=== PATIENT | female | born 1955 | race Caucasian/White ===

== ENCOUNTER → 2017-01-23 | Outpatient (CLI) | payer BC ==
[~2017-01-23] MED LIST: ASPIRIN EC325 MG PO; ATORVASTATIN CA20 MG PO; CENTRUM COMPLE1 EACH PO; CHANTIX0.5 MG PO; Habitrol,Nicoderm CQ TD; LORAZEPAM1 MG PO; Levaquin PO; MAG-AL PLUS SUS30 ML PO; MELOXICAM15 MG PO; MUCINEX600 MG PO; NITROSTAT0.4 MG SL; PANTOPRAZOLE SO40 MG PO; RANITIDINE HCL150 MG PO; VENTOLIN HFA18 GM IH; ZOLPIDEM TARTRAT5 MG PO
== END | disposition home or self-care (01) ==
LOC: OPR 08:39 → EDSTATUS 09:00
DX: C34.10 Malignant neoplasm of upper lobe, unspecified bronchus or lung (principal); Z87.891 Personal history of nicotine dependence; J44.9 Chronic obstructive pulmonary disease, unspecified; K21.9 Gastro-esophageal reflux disease without esophagitis
CPT/HCPCS: 71010; 77012; 85027; 85610; 85730; 88305; 88341 TC; 88342 TC; J2250; J2310; J3010

== ENCOUNTER → 2017-03-01 | Outpatient (CLI) | payer BC ==
[2017-03-01 13:47] LABS: BASE EXCESS 2.6 mEq/L (-3 to +3); BICARBONATE 27.2 mEq/L (22-26); CARBOXY HGB 1.2 % (0-5); COMMENTS - BLOOD GASES A+C+; METHEMOGLOBIN 0.5 % (0-1.5); PCO2 41 mm Hg (35-45); PO2 81 mm Hg (80-100); SITE RR; pH 7.43 (7.35-7.45)
[2017-03-01 13:48] LABS: DEVICE RA
== END | disposition home or self-care (01) ==
LOC: RES 13:33
PROVIDERS: Thoracic Surgery (Cardiothoracic Vascular Surgery)
DX: C34.90 Malignant neoplasm of unspecified part of unspecified bronchus or lung (principal)
CPT/HCPCS: 36600; 82803

== ENCOUNTER → 2017-03-01 | Outpatient (CLI) | payer BC | END | disposition home or self-care (01) | LOC: CDC 12:36 | DX: Z01.810 Encounter for preprocedural cardiovascular examination (principal); C34.90 Malignant neoplasm of unspecified part of unspecified bronchus or lung; R94.31 Abnormal electrocardiogram [ECG] [EKG] | CPT/HCPCS: 93000 ==

== ENCOUNTER 2017-03-15 10:53 | Day surgery (SDC) | payer BC ==
[~2017-03-15] VITALS: Ht 167.6 cm; Wt 72.6 kg
[~2017-03-15 10:53] MED LIST changes: +ALKA-SELTZER PL25 MG PO; +FLONASE16 G1 BOTH NARES; +MUCINEX FAST-M1 EAC2 PO
[2017-03-15 11:25] VITALS: BP 132/79
[2017-03-15] MEDS ORDERED: HYDROCODON-ACE1 EAC7 PO (18:07)
[2017-03-15] MEDS ORDERED: COLACE100 MG PO (18:07)
[2017-03-15 19:36] VITALS: BP 136/63
[2017-03-15 20:30] VITALS: BP 117/56
== END 2017-03-15 20:52 | disposition home or self-care (01) ==
LOC: SDC 10:53
PROC: 07B74ZX Excision of Thorax Lymphatic, Percutaneous Endoscopic Approach, Diagnostic (ICD-10-PCS; principal; 2017-03-15)
DX: C34.11 Malignant neoplasm of upper lobe, right bronchus or lung (principal); K21.9 Gastro-esophageal reflux disease without esophagitis; J44.9 Chronic obstructive pulmonary disease, unspecified; Z88.0 Allergy status to penicillin; Z87.891 Personal history of nicotine dependence
CPT/HCPCS: 86850; 86900; 86901; 88305; J0690; J1100; J1170; J1885; J2250; J2405; J2710; J2765; J3010

== ENCOUNTER 2017-03-28 22:26 | Inpatient (IN) | payer BC ==
[~2017-03-28] VITALS: Ht 167.6 cm; Wt 97.1 kg
[~2017-03-28 22:26] MED LIST changes: +ALKA-SELTZER P1 EAC8 PO; +COLACE100 MG PO; +HYDROCODON-ACE1 EAC7 PO
[2017-03-29] VITALS (10 sets, daily range): BP systolic 107–125; BP diastolic 41–66
[2017-03-30] VITALS (23 sets, daily range): BP systolic 101–150; BP diastolic 42–98
[2017-03-30 05:20] LABS: HEMATOCRIT 27.3 % (36.0-46.0); MCH 29.8 PG (29.0-34.0); MCV 90.4 FL (83-99); PLATELET COUNT 275 K/uL (156-360); RBC DIS.WIDTH-CV 13.8 % (11.8-14.6); RBC DIS.WIDTH-SD 45.4 % (39-53); WHITE BLOOD COUNT 12.5 K/uL (4.1-10.2)
[2017-03-30 05:34] LABS: CHLORIDE 106 MEQ/L (99-109); POTASSIUM 4.5 MEQ/L (3.7-5.4); SODIUM 137 MEQ/L (136-147)
[2017-03-30 05:40] LABS: CREATININE 0.7 MG/DL (0.6-1.3); GFR ESTIMATE (CALCULATED) > 59 mL/min/; GLUCOSE 104 mg/dL (70-99); UREA NITROGEN (BUN) 13 mg/dL (9-23)
[2017-03-30 05:44] LABS: RED BLOOD COUNT 3.02 M/uL (3.80-5.20)
[2017-03-31] VITALS (19 sets, daily range): BP systolic 111–131; BP diastolic 52–76
[2017-03-31 05:59] LABS: HEMATOCRIT 27.7 % (36.0-46.0); HEMOGLOBIN 8.9 G/DL (11.9-15.5); MCH 29.6 PG (29.0-34.0); MCHC 32.1 G/DL (30.0-36.0); PLATELET COUNT 254 K/uL (156-360); RBC DIS.WIDTH-SD 47.4 % (39-53); RED BLOOD COUNT 3.01 M/uL (3.80-5.20); WHITE BLOOD COUNT 8.9 K/uL (4.1-10.2)
[2017-03-31 06:25] LABS: CHLORIDE 106 MEQ/L (99-109); CREATININE 0.7 MG/DL (0.6-1.3); GFR ESTIMATE (CALCULATED) > 59 mL/min/; GLUCOSE 102 mg/dL (70-99); POTASSIUM 4.1 MEQ/L (3.7-5.4); SODIUM 141 MEQ/L (136-147); UREA NITROGEN (BUN) 13 mg/dL (9-23)
[2017-04-01] VITALS (12 sets, daily range): BP systolic 97–148; BP diastolic 52–86
[2017-04-01 05:44] LABS: HEMOGLOBIN 9.3 G/DL (11.9-15.5); MCH 29.6 PG (29.0-34.0); MCHC 32.1 G/DL (30.0-36.0); MCV 92.4 FL (83-99); PLATELET COUNT 306 K/uL (156-360); RBC DIS.WIDTH-SD 47.1 % (39-53); RED BLOOD COUNT 3.14 M/uL (3.80-5.20); WHITE BLOOD COUNT 9.1 K/uL (4.1-10.2)
[2017-04-01 06:07] LABS: CHLORIDE 106 MEQ/L (99-109); CREATININE 0.6 MG/DL (0.6-1.3); GFR ESTIMATE (CALCULATED) > 59 mL/min/; GLUCOSE 110 mg/dL (70-99); POTASSIUM 4.1 MEQ/L (3.7-5.4); SODIUM 141 MEQ/L (136-147); UREA NITROGEN (BUN) 13 mg/dL (9-23)
[2017-04-02] VITALS (8 sets, daily range): BP systolic 102–138; BP diastolic 53–96
[2017-04-03 03:41] VITALS: BP 138/70
[2017-04-03 05:23] LABS: HEMATOCRIT 27.7 % (36.0-46.0); MCH 29.6 PG (29.0-34.0); MCHC 32.5 G/DL (30.0-36.0); MCV 91.1 FL (83-99); PLATELET COUNT 343 K/uL (156-360); RBC DIS.WIDTH-CV 13.8 % (11.8-14.6); RBC DIS.WIDTH-SD 44.9 % (39-53); RED BLOOD COUNT 3.04 M/uL (3.80-5.20)
[2017-04-03 05:30] LABS: CHLORIDE 105 MEQ/L (99-109); CREATININE 0.7 MG/DL (0.6-1.3); GFR ESTIMATE (CALCULATED) > 59 mL/min/; GLUCOSE 111 mg/dL (70-99); POTASSIUM 3.8 MEQ/L (3.7-5.4); SODIUM 140 MEQ/L (136-147); UREA NITROGEN (BUN) 15 mg/dL (9-23)
[2017-04-03 08:06] VITALS: BP 144/74
[2017-04-03 11:42] VITALS: BP 113/59
[2017-04-03 15:33] VITALS: BP 119/55
[2017-04-03 20:00] VITALS: BP 112/69
[2017-04-03] MEDS ORDERED: COLACE100 MG PO (22:05)
[2017-04-03] MEDS ORDERED: NORCO 5/3251 TABLET PO (22:05)
[2017-04-03] MEDS ORDERED: MUCINEX600 MG PO (22:05)
== END 2017-04-03 23:30 | disposition home or self-care (01) | DRG 165 ==
LOC: ENRESERV 22:26 → 2SOUTH 03-29 06:32 → ENRESERV 03-29 09:23 → SDC 03-29 12:53 → 4WEST 03-29 14:08 → EDSTATUS 03-29 15:07 → 2SOUTH 03-29 15:08 → 4WEST 03-29 17:30 → ENRESERV 04-02 08:30 → 3EAST 04-02 14:40
PROVIDERS: Thoracic Surgery (Cardiothoracic Vascular Surgery)
DX: C34.11 Malignant neoplasm of upper lobe, right bronchus or lung (principal); J44.9 Chronic obstructive pulmonary disease, unspecified; K21.9 Gastro-esophageal reflux disease without esophagitis; M19.90 Unspecified osteoarthritis, unspecified site; Z87.891 Personal history of nicotine dependence; Z80.0 Family history of malignant neoplasm of digestive organs; Z83.3 Family history of diabetes mellitus
CPT/HCPCS: 71045; 71046; 80048; 85027; 85610; 86850; 86900; 86901; 86920; 87641; 88300; 88305; 88309; 94010; 94640; 94640 76; 94799; 97530 GO; 97530 GP; 99202; J0131; J0690; J1100; J1160; J1170; J1644; J1885; J2250; J2405; J2710; J3010; J7040; J7050; J7120; S0020

== ENCOUNTER 2017-07-09 23:24 | Emergency (ER) | payer OTHER, BC ==
[~2017-07-09] VITALS: Ht 162.6 cm; Wt 72.3 kg
[~2017-07-09 23:24] MED LIST changes: +NORCO 5/3251 TABLET PO
[2017-07-10] MEDS ORDERED: KEFLEX500 MG PO (00:48)
[2017-07-10] MEDS ORDERED: NORCO 5/3251 TABLET PO (00:48)
[2017-07-10 01:11] VITALS: BP 135/82
== END 2017-07-10 01:12 | disposition home or self-care (01) ==
LOC: EME 23:24
DX: S62.627A Displaced fracture of middle phalanx of left little finger, initial encounter for closed fracture (principal); W23.0XXA Caught, crushed, jammed, or pinched between moving objects, initial encounter; W24.0XXA Contact with lifting devices, not elsewhere classified, initial encounter; Z85.118 Personal history of other malignant neoplasm of bronchus and lung; Z98.890 Other specified postprocedural states; Z88.0 Allergy status to penicillin
CPT/HCPCS: 73140; 99281; 99284

== ENCOUNTER 2017-07-30 16:30 | Inpatient (IN) | payer OTHER, BC ==
[~2017-07-30] VITALS: Ht 152.4 cm; Wt 68.2 kg
[~2017-07-30 16:30] MED LIST changes: +KEFLEX500 MG PO
[2017-07-30] MEDS ORDERED: ANORO ELLIPTA1 EACH IH (17:38)
[2017-07-30] MEDS ORDERED: ZYRTEC10 M3 PO (17:38)
[2017-07-30] MEDS ORDERED: ALEVE220 MG PO (17:39)
[2017-07-30 18:17] VITALS: BP 131/86
[2017-07-30 19:04] LABS: HEMATOCRIT 39.7 % (36.0-46.0); HEMOGLOBIN 13.2 G/DL (11.9-15.5); MCH 27.8 PG (29.0-34.0); MCHC 33.2 G/DL (30.0-36.0); MCV 83.6 FL (83-99); PLATELET COUNT 346 K/uL (156-360); RBC DIS.WIDTH-CV 14.5 % (11.8-14.6); RBC DIS.WIDTH-SD 44.2 % (39-53); RED BLOOD COUNT 4.75 M/uL (3.80-5.20)
[2017-07-30 19:15] VITALS: BP 146/85
[2017-07-30 19:29] LABS: CHLORIDE 106 MEQ/L (99-109); CREATININE 0.7 MG/DL (0.6-1.3); GFR ESTIMATE (CALCULATED) > 59 mL/min/; GLUCOSE 162 mg/dL (70-99); MAGNESIUM 1.9 mg/dl (1.3-2.7); SODIUM 139 MEQ/L (136-147); UREA NITROGEN (BUN) 15 mg/dL (9-23)
[2017-07-30 23:45] VITALS: BP 130/73
[2017-07-31 04:23] VITALS: BP 119/61
[2017-07-31 05:13] LABS: HEMATOCRIT 37.6 % (36.0-46.0); HEMOGLOBIN 12.4 G/DL (11.9-15.5); MCH 27.5 PG (29.0-34.0); MCV 83.4 FL (83-99); PLATELET COUNT 331 K/uL (156-360); RBC DIS.WIDTH-CV 14.4 % (11.8-14.6); RBC DIS.WIDTH-SD 43.5 % (39-53); RED BLOOD COUNT 4.51 M/uL (3.80-5.20); WHITE BLOOD COUNT 6.3 K/uL (4.1-10.2)
[2017-07-31 05:40] LABS: CHLORIDE 107 MEQ/L (99-109); CREATININE 0.7 MG/DL (0.6-1.3); GFR ESTIMATE (CALCULATED) > 59 mL/min/; GLUCOSE 156 mg/dL (70-99); POTASSIUM 4.1 MEQ/L (3.7-5.4); SODIUM 141 MEQ/L (136-147); UREA NITROGEN (BUN) 17 mg/dL (9-23)
[2017-07-31 08:44] VITALS: BP 136/66
[2017-07-31 12:00] VITALS: BP 132/65
[2017-07-31 16:00] VITALS: BP 122/67
[2017-07-31 20:18] VITALS: BP 132/79
[2017-07-31 23:44] VITALS: BP 136/60
[2017-08-01 06:21] VITALS: BP 99/54
[2017-08-01 07:41] VITALS: BP 108/66
[2017-08-01] MEDS ORDERED: DECADRON4 M1 PO (11:17)
[2017-08-01] MEDS ORDERED: ENDOCET 5-3251 EACH PO (11:19)
[2017-08-01] MEDS ORDERED: ALPRAZOLAM0.25 M2 PO (11:19)
== END 2017-08-01 13:54 | disposition home or self-care (01) | DRG 54 ==
LOC: EME 16:30 → 4EAST 16:34 → EDOF 16:34 → ENRESERV 16:35 → EDOF 17:25 → 4EAST 18:05 → CANRESERV 08-01 10:09 → ENRESERV 08-01 10:09 → 4EAST 08-01 13:54
PROVIDERS: Internal Medicine
DX: C79.31 Secondary malignant neoplasm of brain (principal); G93.6 Cerebral edema; I61.8 Other nontraumatic intracerebral hemorrhage; G91.1 Obstructive hydrocephalus; C34.11 Malignant neoplasm of upper lobe, right bronchus or lung; K21.9 Gastro-esophageal reflux disease without esophagitis; J44.9 Chronic obstructive pulmonary disease, unspecified; R63.0 Anorexia; M54.9 Dorsalgia, unspecified; M19.90 Unspecified osteoarthritis, unspecified site; Z87.891 Personal history of nicotine dependence; Z90.2 Acquired absence of lung [part of]
CPT/HCPCS: 71045; 77300; 77307; 77334; 77412; 77417; 80048; 80053; 83735; 85025; 85027; 85610; 85730; 93005; 99202; 99281; 99285; J1100; J1644